=== PATIENT | male | born 1935 | race African-American/Black ===

== ENCOUNTER 2016-11-30 15:41 | Inpatient (IN) | payer MEDICARE, BC ==
[~2016-11-30] VITALS: Ht 167.6 cm; Wt 68.8 kg
[~2016-11-30 15:41] MED LIST: ALLEGRA-D 1212 HOUR PO; AMANTADINE100 MG PO; ASPIRIN325 MG PO; CELEXA10 MG PO; CENTRUM PO; CETIRIZ/PSE1 TAB PO; CRESTOR10 MG PO; CRESTOR5 MG PO; DILANTIN100 MG PO; FLUTICASONE50 MCG; FOLIC ACID1 MG PO; FOLIC ACID400 MC1 PO; GNP RED YEAST RICE PO; LISINOPRIL10 MG PO; METO25TAB PO; METOPROL TAR25 MG PO; NO HOME MEDS; ODORLESS GARLI500 MG PO; PHENYTOIN EX100 MG PO; PRAVASTATIN SOD20 MG PO; PRED FORTE1 % OP; RAPAFLO8 MG PO; ROBITUSSIN AC10 ML PO; SELENIUM200 MC2 PO; TRAMADOL HCL50 MG PO; ZPAK PO
[2016-11-30 16:13] VITALS: BP 128/85
[2016-11-30 16:47] LABS: HEMATOCRIT 31.6 % (39.0-50.0); HEMOGLOBIN 10.4 g/dl (14.0-18.0); IMMATURE GRANULOCYTES 1.1 % (0.0-1.0); MEAN CELL VOLUME 94.3 fL CALC (80.0-100.0); MEAN CORPUSCULAR HGB CONC 32.9 g/L CALC (32.0-36.0); NEUT# 5.53 thou/uL (1.82-7.42); RED BLOOD COUNT 3.35 mill/uL (4.70-6.10); RED CELL DISTRI WIDTH 16.2 % (11.5-15.5)
[2016-11-30 17:32] LABS: ALBUMIN 3.5 g/dL (3.2-5.0); ALKALINE PHOSPHATASE 69 u/l (38-126); ANION GAP 10 (6-22 (CALC)); BILIRUBIN, TOTAL 0.3 mg/dL (0.0-1.4); BUN 15 mg/dL (8-23); BUN/CREATININE RATIO 14 (12-20 (CALC)); CALCIUM 9.4 mg/dL (8.4-10.2); CARBON DIOXIDE 31 mmol/l (22-30); CHLORIDE 104 mmol/l (95-108); GFR > 60 ML/MIN (>=60 (CALC)); GFR FOR AFR.AMER. > 60 ML/MIN (>=60 (CALC)); GLUCOSE 90 mg/dL (82-115); POTASSIUM 4.4 mmol/l (3.5-5.1); SGOT/AST 18 u/l (19-48); SGPT/ALT 26 u/l (11-66); SODIUM 141 mmol/l (137-146); TOTAL PROTEIN 6.4 g/dL (6.3-8.2)
[2016-11-30 19:03] VITALS: BP 134/84
[2016-12-01 02:37] LABS: URINE BILIRUBIN - DIPSTICK NEGATIVE (NEGATIVE); URINE CLARITY CLEAR; URINE COLOR YELLOW; URINE GLUCOSE - DIPSTICK NEGATIVE (NEGATIVE); URINE KETONE NEGATIVE (NEGATIVE); URINE SPECIFIC GRAVITY <=1.005; URINE UROBILINOGEN - DIPSTICK 0.2 E.U./dL (0.2)
[2016-12-01 02:40] LABS: URINE BLOOD DIPSTICK MODERATE (NEGATIVE); URINE LEUK ESTERASE MODERATE (NEGATIVE); URINE NITRITE - DIPSTICK NEGATIVE (Negative); URINE PROTEIN - DIPSTICK NEGATIVE (NEG-TRACE)
[2016-12-01 04:32] VITALS: BP 130/67
[2016-12-01 07:43] VITALS: BP 110/78
[2016-12-01 08:51] LABS: HEMATOCRIT 34.6 % (39.0-50.0); HEMOGLOBIN 11.1 g/dl (14.0-18.0); IMMATURE GRANULOCYTES 1.7 % (0.0-1.0); MEAN CELL VOLUME 94.3 fL CALC (80.0-100.0); MEAN CORPUSCULAR HGB 30.2 pG CALC (26.0-32.0); MEAN CORPUSCULAR HGB CONC 32.1 g/L CALC (32.0-36.0); NEUT# 4.11 thou/uL (1.82-7.42); RED BLOOD COUNT 3.67 mill/uL (4.70-6.10); RED CELL DISTRI WIDTH 16.1 % (11.5-15.5)
[2016-12-01 09:07] LABS: ALBUMIN 3.5 g/dL (3.2-5.0); ALKALINE PHOSPHATASE 66 u/l (38-126); ANION GAP 13 (6-22 (CALC)); BILIRUBIN, TOTAL 0.4 mg/dL (0.0-1.4); BUN 12 mg/dL (8-23); BUN/CREATININE RATIO 11 (12-20 (CALC)); CALCIUM 9.4 mg/dL (8.4-10.2); CARBON DIOXIDE 30 mmol/l (22-30); CHLORIDE 102 mmol/l (95-108); CREATININE 1.1 mg/dL (0.7-1.3); GFR > 60 ML/MIN (>=60 (CALC)); GFR FOR AFR.AMER. > 60 ML/MIN (>=60 (CALC)); GLUCOSE 92 mg/dL (82-115); POTASSIUM 3.7 mmol/l (3.5-5.1); SGOT/AST 16 u/l (19-48); SGPT/ALT 21 u/l (11-66); SODIUM 141 mmol/l (137-146); TOTAL PROTEIN 6.5 g/dL (6.3-8.2)
[2016-12-01 15:26] VITALS: BP 111/72
[2016-12-01 19:37] VITALS: BP 96/55
[2016-12-02 03:54] VITALS: BP 140/66
[2016-12-02 07:53] VITALS: BP 70/43
[2016-12-02 14:51] VITALS: BP 78/48
[2016-12-02 18:58] VITALS: BP 96/60
[2016-12-03 03:10] VITALS: BP 95/61
[2016-12-03 09:20] VITALS: BP 70/40
[2016-12-03 14:56] VITALS: BP 92/59
[2016-12-03 19:24] VITALS: BP 105/58
[2016-12-04 04:20] VITALS: BP 107/55
[2016-12-04 05:51] LABS: HEMATOCRIT 33.8 % (39.0-50.0); HEMOGLOBIN 10.9 g/dl (14.0-18.0); IMMATURE GRANULOCYTES 1.2 % (0.0-1.0); MEAN CELL VOLUME 95.8 fL CALC (80.0-100.0); MEAN CORPUSCULAR HGB 30.9 pG CALC (26.0-32.0); MEAN CORPUSCULAR HGB CONC 32.2 g/L CALC (32.0-36.0); NEUT# 3.51 thou/uL (1.82-7.42); RED BLOOD COUNT 3.53 mill/uL (4.70-6.10); RED CELL DISTRI WIDTH 16.2 % (11.5-15.5)
[2016-12-04 06:20] LABS: ANION GAP 11 (6-22 (CALC)); BUN 17 mg/dL (8-23); BUN/CREATININE RATIO 18 (12-20 (CALC)); CALCIUM 8.8 mg/dL (8.4-10.2); CARBON DIOXIDE 29 mmol/l (22-30); CHLORIDE 104 mmol/l (95-108); CREATININE 0.9 mg/dL (0.7-1.3); GFR > 60 ML/MIN (>=60 (CALC)); GFR FOR AFR.AMER. > 60 ML/MIN (>=60 (CALC)); GLUCOSE 92 mg/dL (82-115); POTASSIUM 3.9 mmol/l (3.5-5.1); SODIUM 140 mmol/l (137-146)
[2016-12-04 07:40] VITALS: BP 81/55
[2016-12-04 13:55] VITALS: BP 115/75
== END 2016-12-04 16:40 | DRG 293 ==
LOC: ENPENDDIS → MS2 15:41
PROVIDERS: ADMIT Internal Medicine Geriatric Medicine; ATTEND Internal Medicine Geriatric Medicine
PROC: 0T9B70Z Drainage of Bladder with Drainage Device, Via Natural or Artificial Opening (ICD-10-PCS; principal; 2016-12-04)
DX: I50.9 Heart failure, unspecified (principal); F03.90 Unspecified dementia, unspecified severity, without behavioral disturbance, psychotic disturbance, mood disturbance, and anxiety; I48.91 Unspecified atrial fibrillation; I25.10 Atherosclerotic heart disease of native coronary artery without angina pectoris; F41.9 Anxiety disorder, unspecified; F32.9 Major depressive disorder, single episode, unspecified; M19.90 Unspecified osteoarthritis, unspecified site; E03.9 Hypothyroidism, unspecified; L98.9 Disorder of the skin and subcutaneous tissue, unspecified; R33.9 Retention of urine, unspecified; Z91.81 History of falling

== ENCOUNTER 2016-12-31 10:49 | Emergency (ER) | payer MEDICARE, BC ==
[~2016-12-31] VITALS: Ht 167.6 cm; Wt 73.0 kg
[2016-12-31 13:34] VITALS: BP 114/65
== END 2016-12-31 13:43 ==
LOC: ED 10:49
PROC: 0T2BX0Z Change Drainage Device in Bladder, External Approach (ICD-10-PCS; principal; 2016-12-31)
DX: Z46.6 Encounter for fitting and adjustment of urinary device (principal); G30.9 Alzheimer's disease, unspecified; F02.80 Dementia in other diseases classified elsewhere, unspecified severity, without behavioral disturbance, psychotic disturbance, mood disturbance, and anxiety

== ENCOUNTER 2017-09-03 08:42 | Emergency (ER) | payer MEDICARE, BC ==
[~2017-09-03] VITALS: Ht 167.6 cm; Wt 78.0 kg
[2017-09-03] MEDS ORDERED: VIBRAMYCIN100 M2 PO (09:08)
[2017-09-03] MEDS ORDERED: METOPROL TAR25 MG PO (09:08)
[2017-09-03 10:35] VITALS: BP 104/66
== END 2017-09-03 11:15 ==
LOC: ED 08:42
DX: S00.11XA Contusion of right eyelid and periocular area, initial encounter (principal); S01.111A Laceration without foreign body of right eyelid and periocular area, initial encounter; W06.XXXA Fall from bed, initial encounter; Y93.89 Activity, other specified; Y92.122 Bedroom in nursing home as the place of occurrence of the external cause

== ENCOUNTER 2017-10-03 11:00 | Observation (INO) | payer MEDICARE, BC ==
[~2017-10-03] VITALS: Ht 167.6 cm; Wt 72.6 kg
[~2017-10-03 11:00] MED LIST changes: +VIBRAMYCIN100 M2 PO
[2017-10-03 11:23] LABS: HEMATOCRIT 38.9 % (39.0-50.0); HEMOGLOBIN 13.4 g/dl (14.0-18.0); IMMATURE GRANULOCYTES 0.7 % (0.0-1.0); MEAN CELL VOLUME 98.5 fL CALC (80.0-100.0); MEAN CORPUSCULAR HGB 33.9 pG CALC (26.0-32.0); MEAN CORPUSCULAR HGB CONC 34.4 g/L CALC (32.0-36.0); NEUT# 4.55 thou/uL (1.82-7.42); RED BLOOD COUNT 3.95 mill/uL (4.70-6.10); RED CELL DISTRI WIDTH 12.7 % (11.5-15.5)
--- NOTE | 2017-10-03 11:38 | NUR ---
PT ARRIVES BY EMS, ANSWERS QUESTIONS APPROPRIATELY, OCCASIONAL SHAKING IF STARTLED WHILE RESTING.
[2017-10-03 11:43] LABS: ALBUMIN 3.7 g/dL (3.2-5.0); ALKALINE PHOSPHATASE 79 u/l (38-126); ANION GAP 15 (6-22 (CALC)); BILIRUBIN, TOTAL 0.5 mg/dL (0.0-1.4); BUN 17 mg/dL (8-23); BUN/CREATININE RATIO 15 (12-20 (CALC)); CARBON DIOXIDE 30 mmol/l (22-30); CHLORIDE 104 mmol/l (95-108); CREATININE 1.1 mg/dL (0.7-1.3); GFR > 60 ML/MIN (>=60 (CALC)); GFR FOR AFR.AMER. > 60 ML/MIN (>=60 (CALC)); POTASSIUM 4.9 mmol/l (3.5-5.1); SGOT/AST 20 u/l (19-48); SGPT/ALT 17 u/l (11-66); SODIUM 144 mmol/l (137-146); TOTAL PROTEIN 6.6 g/dL (6.3-8.2)
[2017-10-03 12:42] LABS: URINE BILIRUBIN - DIPSTICK NEGATIVE (NEGATIVE); URINE BLOOD DIPSTICK NEGATIVE (NEGATIVE); URINE COLOR YELLOW; URINE GLUCOSE - DIPSTICK NEGATIVE (NEGATIVE); URINE KETONE NEGATIVE (NEGATIVE); URINE LEUK ESTERASE NEGATIVE (NEGATIVE); URINE NITRITE - DIPSTICK NEGATIVE (Negative); URINE PH 7.5 (4.5-8.0); URINE PROTEIN - DIPSTICK NEGATIVE (NEG-TRACE); URINE SPECIFIC GRAVITY 1.015; URINE UROBILINOGEN - DIPSTICK 0.2 E.U./dL (0.2)
[2017-10-03 12:45] LABS: URINE CLARITY CLEAR
[2017-10-03 13:21] LABS: C. DIFFICILE TOXIN A&B NEGATIVE (NEGATIVE)
--- NOTE | 2017-10-03 14:23 | NUR ---
DAUGHTER HAS ARRIVED TO ROOM 14, STATES ONLY RECENTLY HAS HER FATHER BECOME THIS CONFUSED, NOT ORIENTED. DTR STATES THE SHAKING NOTED EARLIER IS NOT NEW TO HIM. PT CLEANED UP FOR STOOL INCONTINENCE.
[2017-10-03] MEDS ORDERED: CIPROFLOXACN500 MG PO (14:42)
[2017-10-03] MEDS ORDERED: MULTI VIT PO (15:16)
[2017-10-03] MEDS ORDERED: MIRALAX3350 NF PO (15:16)
[2017-10-03 15:34] VITALS: BP 105/70
--- NOTE | 2017-10-03 15:40 | NUR ---
PT ARRIVED FROM ER VIA STRETCHER ACCOMPANIED BY STAFF, IV SITE IS FREE FROM REDNESS OR EDEMA.,
--- NOTE | 2017-10-03 15:46 | NUR ---
PT TAKEN TO ROOM 291 WITHOUT INCIDENT, REPORT WAS TO SOSA.
--- NOTE | 2017-10-03 16:30 | NUR ---
PT IS HAVING LOOSE STOOLS DUE TO MEDICATION FROM REHAB. IV SITE IS FREE FROM REDNESS OR EDEMA. NO DISTRESS NOTED. DRESSING ON LEFT HAND WITH PLASTIC BAG AND SILVANO WRAP COVERED DUE TO PT TOUCHING THINGS. HAVING AUDITORY HALLUCINATIONS AND SHAKING, ALMOST NERVOUS TYPE MOVEMENTS. BRICE ORACLE ADF CONSULTANT IN TO WITNESS. FAMILY IN THE ROOM. CHANGING PT ON BED STEVEN. CONTINUE TO OSBERVE AND MONITOR.
--- NOTE | 2017-10-03 17:00 | NUR ---
PT ASSESSMENT IS COMPLETED: BREATH SOUNDS ARE CLEAR,BILATERALLY, HR IS REG, PULSES ARE STRONG X4. ABD IS SOFT WITH ACTIVE BS. IV SITE IS FREE FROM REDNESS OR EDEMA.
--- NOTE | 2017-10-03 19:15 | NUR ---
PT RESTING IN BED WITH EYES OPEN. PT IS ALERT AND ORIENTED X3. PT HAS PERIODS OF CONFUSIONS. PERRLA. RESP ARE EVEN AND UNLABORED. LUNGS ARE CLEAR. NO DSITRESS NOTED. HR REGULAR. PULSES PALPABLE THROUGHOUT. NO EDEMA NOTED. BS ACTIVE. PT INCONTINENT OF URINE. PT CLEANED AND COMPLETE LINEN CHANGE PROVIDED. MIDLINE KRISTINE WITH NS @100CC/HR INFUSING. NO REDNESS OR EDEMA NOTED. PT HAS PERIODS OF PLACING HIS ARMS IN THE AIR AND LEGS MOVING IN A JERKING MANNER, BUT UPON CALLING PTS NAME THESE MOVEMENTS CEASE AND PT IS STILL ALERT AND ORIENTED X3.
[2017-10-03 20:10] VITALS: BP 120/80
--- NOTE | 2017-10-03 21:00 | NUR ---
LEFT HAND DRESSING FOUND TO BE SOILED. NOTIFIED DR PIZANO. DRESSING REMOVED. WOUND CARE PROVIDED. FOUL ODOR NOTED. PICTURES PLACED ON CHART. REDRESSED WOUND. ORDERS OBTAINED FOR HAND XRAY AND ABT THERAPY.
--- NOTE | 2017-10-03 23:30 | NUR ---
XRAY INTO ROOM. TO COMPLETE LEFT HAND XRAY
--- NOTE | 2017-10-04 | NUR ---
PT CONTINUES TO HAVE PERIODS OF JERKING TYPE MOVEMENTS AND YELLING. PT CONTINUES TO REMAIN ALERT AND ORIENTED X3 ONCE NAME IS CALLED. WILL CONTINUE TO MONITOR
--- NOTE | 2017-10-04 02:00 | NUR ---
PT INCONTINENT OF URINE. PT PROVIDED WITH PARTIAL BATH AND COMPLETE LINEN CHANGE.
--- NOTE | 2017-10-04 04:00 | NUR ---
PT RESTING IN BED WITH EYES CLOSED. FEWER PERIODS OF JERKING MOVEMENTS. NO DISTRESS NOTED. WILL CONTINUE TO MONITOR
[2017-10-04 04:40] VITALS: BP 113/63
[2017-10-04 05:21] LABS: HEMATOCRIT 34.2 % (39.0-50.0); HEMOGLOBIN 11.9 g/dl (14.0-18.0); MEAN CELL VOLUME 98.3 fL CALC (80.0-100.0); MEAN CORPUSCULAR HGB 34.2 pG CALC (26.0-32.0); MEAN CORPUSCULAR HGB CONC 34.8 g/L CALC (32.0-36.0); RED BLOOD COUNT 3.48 mill/uL (4.70-6.10); RED CELL DISTRI WIDTH 12.7 % (11.5-15.5)
[2017-10-04 05:29] LABS: ANION GAP 11 (6-22 (CALC)); BUN 12 mg/dL (8-23); BUN/CREATININE RATIO 12 (12-20 (CALC)); CARBON DIOXIDE 25 mmol/l (22-30); CHLORIDE 110 mmol/l (95-108); GFR > 60 ML/MIN (>=60 (CALC)); GFR FOR AFR.AMER. > 60 ML/MIN (>=60 (CALC)); MAGNESIUM 2.1 mg/dL (1.6-2.3); POTASSIUM 4.3 mmol/l (3.5-5.1); SODIUM 142 mmol/l (137-146)
[2017-10-04 07:12] VITALS: BP 108/71
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
--- NOTE | 2017-10-04 08:20 | NUR ---
ASSESSMENT IS COMPLTED: PT IS MOVING AROUND IN BED , DRESSING ON LEFT HAND IS CDI. IV SITE IS FREE FROM REDNESS OR EDEMA. NO DISTRESS NOTED,. CONTIINUE TO OBSERVE AND MONITOR.
--- NOTE | 2017-10-04 08:25 | NUR ---
IN TO ASSIST PT W/ BREAKFAST. PT REFUSED TO EAT SOLID FOOD BUT TOLERATED LIQUIDS WELL. PT DRINK 217 MLS OF ENSURE. WILL CONTINUE TO NOTIFY.
--- NOTE | 2017-10-04 08:52 | NUR ---
Drug Selected: Vancomycin Age: 81 years Weight: 73 kg Height: 66 in Gender: Male SCR: 1.0 mg/dl CRCL (ml/min): 51.4 Give Vancomycin 750 mg q12 hrs GOAL TROUGH 15-20 NEXT TROUGH WILL BE 10/05/2017 @1035
--- NOTE | 2017-10-04 12:00 | NUR ---
IMANI NAGEL STUDENT RECHECKED PT'S VS. VS ARE STABLE. NO DISTRESS NOTED, PT ONLY ATE 50% OF LUNCH. ENCOURAGING TO DRINK ENSURE. CONTINUE TO OBSERVE AND MONITOR.
[2017-10-04 12:21] VITALS: BP 100/57
[2017-10-04 15:29] VITALS: BP 127/79
--- NOTE | 2017-10-04 16:15 | NUR ---
PT IS RELAXING IN BED WITH NO DISTRESS NOTED. IV SITE IS FREE FROM REDNESS OR EDEMA. CONTINUE TO OBSERVE AND MONITOR.
--- NOTE | 2017-10-04 19:30 | NUR ---
REPORT RECEIVED FROM ROBE SWAN;PT RESTING IN SEMI FOWLERS POSITION;CONTACT AND SEIZURE PRECAUTIONS IN PLACE;INTRODUCED SELF TO PT AND POC DISCUSSED;PT RE-ORIENTED TO PLACE AND TIME;BED IN THE LOWEST POSITION WITH CALL LIGHT IN REACH;WILL CONTINUE TO MONITOR
--- NOTE | 2017-10-04 19:34 | NUR ---
WHEN MAKING ROUNDS WITH ONCOMING SHIFT. PT WAS ATTEMPTING TOGET OUT OF BED, TELLING US THAT HE NEEDS TO GO HOME HE HAS SOMETHING HE HAS TO DO.
[2017-10-04 20:05] VITALS: BP 118/74
--- NOTE | 2017-10-04 20:50 | NUR ---
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
--- NOTE | 2017-10-05 00:10 | NUR ---
RT AT BEDSIDE TO OBTAIN EKG;PT UNCOOPERATIVE,BITING AND PUSHING THE WHOLE TIME;RESISTANT TO CARE R/T AMS
[2017-10-05 00:45] VITALS: BP 133/79
--- NOTE | 2017-10-05 00:45 | NUR ---
PT FOUND FLAILING IN BED,CLEARLY AGITATED;RESPIRATIONS SHALLOW AND COURSE IN SOUND;O2 SATS 97% ON RA HR 85 BP 133/79;SEIZURE PRECAUTIONS REMAIN IN PLACE;PT REMAINS VERBAL BUT WITH GARBLED SPEECH;WILL CONTINUE TO MONITOR
--- NOTE | 2017-10-05 02:10 | NUR ---
COMPLETE BEDBATH COMPLETED BY NICOLE AVENDANO AND MARIUM;PT REPORTED THAT HE WAS IN "[facility]" AND THAT THE YEAR WAS "2019";INCONTINENT OF A LARGE AMOUNT OF URINE AND SCANT STOOL;BED ALARM ON FOR PT SAFETY;WILL CONTINUE TO MONITOR
[2017-10-05 04:55] VITALS: BP 112/63
--- NOTE | 2017-10-05 04:55 | NUR ---
PT SLEEPING IN SEMI FOWLERS POSITION WITH BED ALARM ON;WOKE PT TO OBTAIN VS AND PROVIDE COLE CARE;PT ALERT TO SELF AND PLACE;RESPIRATIONS EVEN AND UNLABORED ON RA;SEIZURE PRECAUTIONS IN PLACE;FRESH WATER PROVIDED;FALL PRECAUTIONS IN PLACE WITH BED IN THE LOWEST POSITION;WILL CONTINUE TO MONITOR
[2017-10-05 05:52] LABS: ANION GAP 13 (6-22 (CALC)); BUN 12 mg/dL (8-23); BUN/CREATININE RATIO 12 (12-20 (CALC)); CARBON DIOXIDE 25 mmol/l (22-30); CHLORIDE 109 mmol/l (95-108); GFR > 60 ML/MIN (>=60 (CALC)); GFR FOR AFR.AMER. > 60 ML/MIN (>=60 (CALC)); MAGNESIUM 2.1 mg/dL (1.6-2.3); POTASSIUM 4.3 mmol/l (3.5-5.1); SODIUM 142 mmol/l (137-146)
[2017-10-05 05:59] LABS: HEMATOCRIT 33.8 % (39.0-50.0); IMMATURE GRANULOCYTES 0.7 % (0.0-1.0); MEAN CORPUSCULAR HGB 34.8 pG CALC (26.0-32.0); MEAN CORPUSCULAR HGB CONC 35.5 g/L CALC (32.0-36.0); NEUT# 4.16 thou/uL (1.82-7.42); RED BLOOD COUNT 3.45 mill/uL (4.70-6.10); RED CELL DISTRI WIDTH 12.6 % (11.5-15.5)
--- NOTE | 2017-10-05 07:50 | NUR ---
PT DROWSY/AROUSABLE; DIRECT CARE COUNSELOR IN TO ASSIST WITH BREAKFAST FEED; IVF INFUSING WITHOUT DIFFICULTY IN KRISTINE MIDLINE, NO REDNESS OR EDEMA AT SITE; DRSG TO LEFT HAND CDI; BED ALARM IN PLACE FOR SAFEY; CALL ANAND WITHIN REACH; WILL CONTINUE TO MONITOR.
[2017-10-05 08:46] VITALS: BP 118/72
--- NOTE | 2017-10-05 10:26 | NUR ---
DAUGHTER IN TO VISIT PT; PLAN OF CARE DISCUSSED; WILL CONTINUE TO MONITOR.
--- NOTE | 2017-10-05 14:43 | NUR ---
DR. COOPER IN TO SEE PT; PLAN OF CARE DISCUSSED;
--- NOTE | 2017-10-05 15:15 | NUR ---
PT INCONTINEN OF MODERATE AMOUNT OF URINE; COLE CARE PROVIDED BY OYSTER GRADER; PT REPOSITIONED; FAMILY IN ROOM; CALL ANAND WITHIN REACH; WILL CONTINUE TO MONITOR.
[2017-10-05 15:22] VITALS: BP 133/74
--- NOTE | 2017-10-05 17:47 | NUR ---
PT ASSISTED WITH DINNER BY RIGHT OF WAY CUTTER; WILL CONTINUE TO MONITOR.
[2017-10-05 19:08] VITALS: BP 136/82
--- NOTE | 2017-10-05 19:20 | NUR ---
REPORT RECEIVED FROM DORCAS MORALES;PT RESTING IN SEMI FOWLERS POSITION WITH EYES CLSOED;NO S/S OF DISTRESS NOTED;FALL PRECAUTIONS IN PLACE WITH BED ALARM ON;WILL CONTINUE TO MONITOR
--- NOTE | 2017-10-05 20:00 | NUR ---
PT FOUND WITH MIDLINE REMOVED WITH CATHETER INTACT; NOTIFIED
--- NOTE | 2017-10-05 20:40 | NUR ---
PT RESTING IN BED;ALERT TO PERSON AND PLACE;ASSESSMENT COMPLETED;RESPIRATIONS EVEN BUT SHALLOW ON RA,O2 SATS 97%;COARSE LUNG SOUNDS;ABDOMEN SOFT;DRESSING TO RIGHT HAND/ARM CDI;BODY TREMORS NOTED AT TIMES,SEIZURE PRECAUTIONS IN PLACE;PT INCONTINENT OF BOWEL AND URINE,COLE CARE TO BE PROVIDED THROUGHOUT THE SHIFT;CONTACT PRECAUTIONS FOR HX OF MRSA;BED ALARM IN PLACE FOR PT SAFETY WITH BED IN THE LOWEST POSITION;CALL LIGHT IN REACH;WILL CONTINUE TO MONITOR CLOSELY
--- NOTE | 2017-10-05 21:20 | NUR ---
NEW #22G TO RAC STARTED BY CHRIS,RN,PT TOLERATED WELL
--- NOTE | 2017-10-06 00:05 | NUR ---
PT AWAKE,SLIGHTLY AGITATED;ATTEMPTING TO GRAB OBJECTS IN THE AIR;PT RE-ORIENTED TO PLACE AND TIME;GARBLED SPEECH;SEIZURE PRECAUTIONS IN PLACE;BED ALARM ON FOR SAFETY;WILL CONTINUE TO MONITOR
[2017-10-06 04:18] VITALS: BP 116/80
--- NOTE | 2017-10-06 04:20 | NUR ---
PT LAYING IN BED WIDE AWAKE,MOANING;VS OBTAINED;RESPIRATIONS EVEN AND UNLABORED,SHALLOW ON RA,OS SATS 98%;PT INCONTINENT OF A MODERATE AMOUNT OF CLEAR/YELLOW URINE;COLE CARE TO BE PROVIDED;SEIZURE PRECAUTIONS IN PLACE;BED ALARM ON FOR SAFETY;CALL LIGHT IN REACH;WILL CONTINUE TO MONITOR
--- NOTE | 2017-10-06 05:00 | NUR ---
FULL BED BATH PROVIDED BY MYSELF AND DORCAS GERMAIN;SKIN TEAR NOTED TO LEFT FOREARM AT THIS TIME;PHOTOGRAPH OBTAINED AND PLACED IN CHART,BANDAID APPLIED
[2017-10-06 08:23] VITALS: BP 121/56
--- NOTE | 2017-10-06 09:57 | NUR ---
THAD FROM R CALLED FOR UPDATE ON PT STATUS
--- NOTE | 2017-10-06 11:36 | NUR ---
DR. COOPER IN TO SEE PT
[2017-10-06] MEDS ORDERED: QUETIAPINE FUMA25 MG PO (12:37)
--- NOTE | 2017-10-06 15:15 | NUR ---
PT TRANSFERED TO R VIA WC ACCOMPANIED BY STAFF; BEDSIDE REPORT GIVEN TO DORCAS MCBRIDE
--- NOTE | 2017-10-06 15:16 | NUR ---
Discharge instructions given. Patient verbalizes understanding of same. Discharged in stable condition via Wheel[facility] with [facility]. All belongings sent with pt.
== END 2017-10-06 15:10 ==
LOC: ED 11:00 → ED-I 14:42 → ED 14:59 → MS2 15:00
PROVIDERS: Emergency Medicine; Nurse Practitioner Family; ADMIT Internal Medicine; ATTEND Internal Medicine
DX: G30.9 Alzheimer's disease, unspecified (principal); F02.81 Dementia in other diseases classified elsewhere, unspecified severity, with behavioral disturbance; I48.91 Unspecified atrial fibrillation; I50.9 Heart failure, unspecified; A09 Infectious gastroenteritis and colitis, unspecified; F02.80 Dementia in other diseases classified elsewhere, unspecified severity, without behavioral disturbance, psychotic disturbance, mood disturbance, and anxiety; I10 Essential (primary) hypertension; I25.10 Atherosclerotic heart disease of native coronary artery without angina pectoris; I11.0 Hypertensive heart disease with heart failure; F41.9 Anxiety disorder, unspecified; F32.9 Major depressive disorder, single episode, unspecified; E03.9 Hypothyroidism, unspecified; T23.302D Burn of third degree of left hand, unspecified site, subsequent encounter; X08.8XXD Exposure to other specified smoke, fire and flames, subsequent encounter; Z91.81 History of falling
CPT/HCPCS: J0692; J1650; J3370

== ENCOUNTER → 2018-10-11 | Outpatient (REF) | payer MEDICARE, BC ==
[~2018-10-11] MED LIST changes: +CIPROFLOXACN500 MG PO; +DUONEB IN; +IRON325 M1; +MILK OF MAG30 ML/UDC PO; +MIRALAX3350 NF PO; +MULTI VIT PO; +QUETIAPINE FUMA25 MG PO; +TAMSULOSIN HCL0.4 MG PO; +TYLENOL325 MG PO
== END | disposition home or self-care (01) ==
LOC: LABSPEC 00:56
PROVIDERS: ATTEND Internal Medicine Geriatric Medicine
DX: M86.9 Osteomyelitis, unspecified (principal); Z79.2 Long term (current) use of antibiotics

== ENCOUNTER → 2018-10-21 | Outpatient (REF) | payer MEDICARE, BC ==
[2018-10-21 15:24] LABS: HEMATOCRIT 34.6 % (39.0-50.0); HEMOGLOBIN 11.8 g/dl (14.0-18.0); IMMATURE GRANULOCYTES 2.7 % (0.0-5.0); MEAN CELL VOLUME 103.3 fL CALC (80.0-100.0); MEAN CORPUSCULAR HGB 35.2 pG CALC (26.0-32.0); MEAN CORPUSCULAR HGB CONC 34.1 g/L CALC (32.0-36.0); NEUT# 3.26 thou/uL (1.82-7.42); RED BLOOD COUNT 3.35 mill/uL (4.70-6.10); RED CELL DISTRI WIDTH 13.8 % (11.5-15.5)
[2018-10-21 15:35] LABS: ALBUMIN 3.6 g/dL (3.2-5.0); ALKALINE PHOSPHATASE 85 u/l (38-126); ANION GAP 15 (6-22 (CALC)); BILIRUBIN, TOTAL 0.5 mg/dL (0.0-1.4); BUN 16 mg/dL (8-23); BUN/CREATININE RATIO 14 (12-20 (CALC)); CARBON DIOXIDE 23 mmol/l (22-30); CHLORIDE 105 mmol/l (95-108); CREATININE 1.2 mg/dL (0.7-1.3); GFR 58 ML/MIN (>=60 (CALC)); GFR FOR AFR.AMER. > 60 ML/MIN (>=60 (CALC)); POTASSIUM 4.6 mmol/l (3.5-5.1); SGOT/AST 29 u/l (19-48); SODIUM 139 mmol/l (137-146); TOTAL PROTEIN 6.5 g/dL (6.3-8.2)
== END | disposition home or self-care (01) ==
LOC: LABSPEC 14:52
PROVIDERS: ATTEND Internal Medicine Geriatric Medicine
DX: M86.9 Osteomyelitis, unspecified (principal); Z79.2 Long term (current) use of antibiotics

== ENCOUNTER → 2018-10-22 | Outpatient (REF) | payer MEDICARE, BC | END | disposition home or self-care (01) | LOC: LABSPEC-NH 15:10 | PROVIDERS: ATTEND Internal Medicine Geriatric Medicine | DX: M86.9 Osteomyelitis, unspecified (principal); Z79.2 Long term (current) use of antibiotics ==

== ENCOUNTER → 2018-10-26 | Outpatient (REF) | payer MEDICARE, BC | END | disposition home or self-care (01) | LOC: LABSPEC 20:08 | PROVIDERS: ATTEND Internal Medicine Geriatric Medicine | DX: Z51.81 Encounter for therapeutic drug level monitoring (principal); Z79.2 Long term (current) use of antibiotics ==

== ENCOUNTER → 2018-11-07 | Outpatient (REF) | payer MEDICARE, BC | END | disposition home or self-care (01) | LOC: LABSPEC-NH 20:53 | PROVIDERS: ATTEND Internal Medicine Geriatric Medicine | DX: Z16.21 Resistance to vancomycin (principal); Z79.2 Long term (current) use of antibiotics ==

== ENCOUNTER → 2018-11-08 | Outpatient (REF) | payer MEDICARE, BC | END | disposition home or self-care (01) | LOC: LABSPEC-NH 21:40 | PROVIDERS: ATTEND Internal Medicine Geriatric Medicine | DX: Z16.21 Resistance to vancomycin (principal); Z79.2 Long term (current) use of antibiotics ==

== ENCOUNTER → 2018-11-13 | Outpatient (REF) | payer MEDICARE, BC | END | disposition home or self-care (01) | LOC: LABREF 02:14 | PROVIDERS: ATTEND Internal Medicine Geriatric Medicine | DX: Z16.21 Resistance to vancomycin (principal); Z79.2 Long term (current) use of antibiotics ==

== ENCOUNTER → 2018-11-17 | Outpatient (REF) | payer MEDICARE, BC ==
[2018-11-17 10:40] LABS: HEMATOCRIT 36.7 % (39.0-50.0); HEMOGLOBIN 12.7 g/dl (14.0-18.0); IMMATURE GRANULOCYTES 1.5 % (0.0-5.0); MEAN CORPUSCULAR HGB 33.2 pG CALC (26.0-32.0); MEAN CORPUSCULAR HGB CONC 34.6 g/L CALC (32.0-36.0); NEUT# 4.64 thou/uL (1.82-7.42); RED BLOOD COUNT 3.82 mill/uL (4.70-6.10)
[2018-11-17 10:45] LABS: MEAN CELL VOLUME 96.1 fL CALC (80.0-100.0)
[2018-11-17 10:53] LABS: ALBUMIN 3.6 g/dL (3.2-5.0); ALKALINE PHOSPHATASE 62 u/l (38-126); ANION GAP 12 (6-22 (CALC)); BILIRUBIN, TOTAL 0.5 mg/dL (0.0-1.4); BUN 15 mg/dL (8-23); BUN/CREATININE RATIO 13 (12-20 (CALC)); CARBON DIOXIDE 26 mmol/l (22-30); CHLORIDE 105 mmol/l (95-108); CREATININE 1.2 mg/dL (0.7-1.3); GFR 58 ML/MIN (>=60 (CALC)); GFR FOR AFR.AMER. > 60 ML/MIN (>=60 (CALC)); POTASSIUM 4.2 mmol/l (3.5-5.1); SGOT/AST 21 u/l (19-48); SODIUM 139 mmol/l (137-146); TOTAL PROTEIN 6.4 g/dL (6.3-8.2)
== END | disposition home or self-care (01) ==
LOC: LABSPEC-NH 10:23
PROVIDERS: ATTEND Internal Medicine Geriatric Medicine
DX: M86.9 Osteomyelitis, unspecified (principal); Z79.2 Long term (current) use of antibiotics

== ENCOUNTER 2019-10-20 02:06 | Inpatient (IN) | payer MEDICARE, BC, OTHER ==
[2019-10-20] VITALS (48 sets, daily range): BP systolic 60–154; BP diastolic 34–96
[~2019-10-20] VITALS: Ht 167.6 cm; Wt 90.3 kg
[~2019-10-20 02:06] MED LIST changes: +CENTANY21 EX; +CLINDAMYCIN HC150 MG PO; +HEPARIN LOC IJ; +NORMAL SALINE F0.9 % IN; -TYLENOL325 MG PO
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
--- NOTE | 2019-10-20 02:25 | NUR ---
ATROPINE 1MG TOTAL GIVEN. PUSHED 0.5MG, WAITED WITH NO IMPROVEMENT, PUSHED OTHER 0.5MG.
[2019-10-20 02:48] LABS: HEMATOCRIT 38.6 % (39.0-50.0); HEMOGLOBIN 13.4 g/dl (14.0-18.0); MEAN CELL VOLUME 101.6 fL CALC (80.0-100.0); MEAN CORPUSCULAR HGB 35.3 pG CALC (26.0-32.0); MEAN CORPUSCULAR HGB CONC 34.7 g/L CALC (32.0-36.0); NEUT# 3.77 thou/uL (1.82-7.42); RED BLOOD COUNT 3.8 mill/uL (4.70-6.10); RED CELL DISTRI WIDTH 13.5 % (11.5-15.5)
[2019-10-20 03:01] LABS: PROTHROMBIN TIME 10.2 SECONDS (9.0-12.5)
[2019-10-20 03:02] LABS: ALBUMIN 3.4 g/dL (3.2-5.0); ALKALINE PHOSPHATASE 68 u/l (38-126); ANION GAP 10 (6-22 (CALC)); BILIRUBIN, TOTAL 0.4 mg/dL (0.0-1.4); BUN 22 mg/dL (8-23); BUN/CREATININE RATIO 19 (12-20 (CALC)); CARBON DIOXIDE 27 mmol/l (22-30); CHLORIDE 107 mmol/l (95-108); CREATININE 1.1 mg/dL (0.7-1.3); GFR > 60 ML/MIN (>=60 (CALC)); GFR FOR AFR.AMER. > 60 ML/MIN (>=60 (CALC)); SGOT/AST 31 u/l (19-48); SODIUM 139 mmol/l (137-146); TOTAL PROTEIN 6.4 g/dL (6.3-8.2)
--- NOTE | 2019-10-20 03:05 | NUR ---
REPEAT DOSE OF ATROPINE GIVEN WITHOUT ANY IMPROVEMENT,
--- NOTE | 2019-10-20 03:20 | NUR ---
DAUGHTER AT BEDSIDE. DOPAMINE UP PER ORDER. HR UP TO 46 AND BP 59/46
--- NOTE | 2019-10-20 03:42 | NUR ---
REPORT GIVEN TO ROBE MENDES
--- NOTE | 2019-10-20 03:48 | NUR ---
Admission Note Report Given to: ROBE MENDES Transported by: Wheelchair X Stretcher Transported with: X Nurse Transporter X Patent IV O2 X Central Office Installer Location: X ICU MS2 DOPAMINE DRIP AND NS INFUSING.
--- NOTE | 2019-10-20 04:00 | NUR ---
84 yr old black male admitted icu7 per stretcher from er. transferred x4 to bed. bed weight obtained. 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 #20 lac saline lock. #22 rfa ns bolus cont, dopamine infusing @ 5mcg/kg/min. history obtained per er record & old chart. oriented to room. fall precautions initiated. daughter @ bedside.
--- NOTE | 2019-10-20 06:00 | NUR ---
remains confused. awake overnight monitor shows sinus arslan 1st degree avb hr 38. daughter @ bedside. has not voided.
--- NOTE | 2019-10-20 07:45 | NUR ---
PT RESTING IN BED WITH EYES CLOSED. NO DISTRESS NOTED. WILL CONTINUE TO MONITOR.
--- NOTE | 2019-10-20 10:00 | NUR ---
DR. PIZANO AT BEDSIDE TO ASSESS PT
--- NOTE | 2019-10-20 10:15 | NUR ---
PT UP IN CHAIR FOR BREAKFAST. FAMILY AT BEDSIDE. NO DISTRESS NOTED. DOPAMINE GTT TITRATED UP PER ORDER. WILL CONTINUE TO MONITOR.
--- NOTE | 2019-10-20 12:23 | NUR ---
PT RESTING IN BED WITH EYES CLOSED. FEED ASSISTED FOR LUNCH. NO DISTRESS NOTED. WILL CONTINUE TO MONITOR.
--- NOTE | 2019-10-20 14:11 | NUR ---
PT RESTING IN BED WITH EYES CLOSED. NO DISTRESS NOTED. WILL CONTINUE TO MONITOR.
--- NOTE | 2019-10-20 16:10 | NUR ---
PT RESTING IN BED WITH EYES CLOSED. NO DISTRESS NOTED. PT ORIENTED TO SELF. DOPAMINE GTT ON. INCONTINENCE CARE PROVIDED. DENIES PAIN AT THIS TIME. WILL CONTINUE TO MONITOR.
--- NOTE | 2019-10-20 18:56 | NUR ---
REPORT GIVEN TO NIGHT NURSE. PT RESTING IN BED WITH EYES CLOSED. NO DISTRESS NOTED. PT ON ROOM AIR. DOPAMINE GTT. NO BM THIS SHIFT. PLEASE SEE FLOW SHEET FOR FURTHER DETAILS
--- NOTE | 2019-10-20 19:10 | NUR ---
awake. oriented to name only. campus monitor shows sinus rhythm 1st degree avb pacs pvcs hr 65. #22 rfa saline lock. #20 lac. dopamine gtt infusing @ 10mcg/kg/min. ns infusing @ 125cchr. refused po intake. diaper in place & is dry. turned & repositioned. requires total care for all needs. fall precautions cont.
--- NOTE | 2019-10-20 22:00 | NUR ---
iv out of lac with cath intact. no obvious edema @ site. incont of urine. linens changed. pericare given-diaper replaced. ivf cont per rfa site.
[2019-10-21] VITALS (10 sets, daily range): BP systolic 96–174; BP diastolic 51–86
--- NOTE | 2019-10-21 00:01 | NUR ---
eyes closed. no distress. hris manager shows sinus rhythm 1st degree avb pacs pvcs hr 62.
--- NOTE | 2019-10-21 02:00 | NUR ---
resting quietly. resps even & unlabored. no apparent distress. cardiac care nurse shows sinus rhythm 1st degree avb pacs pvcs hr 76.
--- NOTE | 2019-10-21 04:30 | NUR ---
incont large amt urine. maryjane care given-diaper replaced. linens changed.
--- NOTE | 2019-10-21 05:00 | NUR ---
lab here. blood drawn.
--- NOTE | 2019-10-21 05:10 | NUR ---
rt @ bedside. ekg obtained.
[2019-10-21 05:24] LABS: HEMATOCRIT 35.2 % (39.0-50.0); HEMOGLOBIN 12.1 g/dl (14.0-18.0); MEAN CELL VOLUME 101.7 fL CALC (80.0-100.0); MEAN CORPUSCULAR HGB CONC 34.4 g/L CALC (32.0-36.0); RED BLOOD COUNT 3.46 mill/uL (4.70-6.10); RED CELL DISTRI WIDTH 13.5 % (11.5-15.5)
[2019-10-21 05:43] LABS: ALBUMIN 3.6 g/dL (3.2-5.0); ALKALINE PHOSPHATASE 75 u/l (38-126); ANION GAP 11 (6-22 (CALC)); BILIRUBIN, TOTAL 0.5 mg/dL (0.0-1.4); BUN 20 mg/dL (8-23); BUN/CREATININE RATIO 19 (12-20 (CALC)); CHLORIDE 111 mmol/l (95-108); CREATININE 1.1 mg/dL (0.7-1.3); GFR > 60 ML/MIN (>=60 (CALC)); GFR FOR AFR.AMER. > 60 ML/MIN (>=60 (CALC)); POTASSIUM 4.8 mmol/l (3.5-5.1); SGOT/AST 30 u/l (19-48); SODIUM 138 mmol/l (137-146); TOTAL PROTEIN 6.6 g/dL (6.3-8.2)
[2019-10-21 05:46] LABS: CARBON DIOXIDE 21 mmol/l (22-30)
--- NOTE | 2019-10-21 07:00 | NUR ---
REPORT RECVD FROM ROBE MENDES @START OF SHIFT.
--- NOTE | 2019-10-21 07:33 | NUR ---
DAUGHTER @BEDSIDE; WAITING FOR MD TO MAKE ROUNDS. PT SLEEPING- TALKING IN SLEEP (PER RICKEY). RLL COARSE, LLL WHEEZING, BREATHING EVEN/UNLABORED. SI/S2, RADIAL PULSES STRONG, PEDAL PULSES WEAK. MATTHEWS W/MILD CONTORTION. SKIN INTACT (PER RICKEY), WARM/DRY. CAP REFILL -3SEC. PT IN BRIEF FOR URINARY & STOOL INCONTINENT. IV RFA W/IVF RUNNING. BILAT EYE POST CATARACT.
--- NOTE | 2019-10-21 07:58 | NUR ---
DAUGHTER FEEDING PT BREAKFAST.
--- NOTE | 2019-10-21 08:21 | NUR ---
DR PIZANO @BEDSIDE WITH PT &DAUGHTER.
--- NOTE | 2019-10-21 12:00 | NUR ---
PT FEED LUNCH, PT STATES HE'S NOT HUNGRY BUT CONTINUES TO EAT.
--- NOTE | 2019-10-21 14:04 | NUR ---
DR PIZANO NOTIFIED OF BP OF 174/.
--- NOTE | 2019-10-21 15:06 | NUR ---
PT CLEANED OF URINARY INCONTINENCE, PARTIAL BATH, PARTIAL LINEN CHANGE. PT SITTING UP IN HIGH FOWLERS. PT ASKING FOR A BIKE SO HE CAN LEAVE HERE. BEFORE LEAVING THE ROOM, PT STATES HES GOING TO SLEEP NOW SO I SHOULD LEAVE BC HE SNORES.
--- NOTE | 2019-10-21 17:45 | NUR ---
PT FEED DINNER; ATE 25%. PT MAKING PLEASANT CONVERSATION WITH STAFF.
--- NOTE | 2019-10-21 18:29 | NUR ---
PT UNHOOKING HIMSELF FROM MONITORING EQUIPMENT. IV SITE SECURED WITH COBAN. WILL CONTINUE TO MONITOR.
--- NOTE | 2019-10-21 20:00 | NUR ---
REPORT RECEIVED. ROUNDS AND ASSESSMENT COMPLETE REFER TO FLOWSHEETS. PT ALERT TO NAME ONLY. WHEN ASKED WHERE WE ARE HE STATED [facility]. ADMITS HIS FIRST NAME IS MIKAEL BUT LIKES TO BE CALLED RAVI. REMAINS SINUS RHYTHM 68 ON BEDSIDE TELEMETRY. REMAINS INCONTINENT OF URINE. COMPLETE BATH AND LINEN CHANGED THAN CONDOM CATH APLIED WITH LEG SECURE STRAP DRAINING TO GRAVITY.
--- NOTE | 2019-10-21 22:00 | NUR ---
CONTINUES WITH INCONTINENCE. COMPLETE CARE GIVEN AND CONDOM CATH RE APLIED. VITAL SIGNS REMAIN STABLE. REFER TO FLOWSHEET FOR COMPLETE ASSESSMENT.
[2019-10-22] VITALS (7 sets, daily range): BP systolic 101–132; BP diastolic 62–84
--- NOTE | 2019-10-22 | NUR ---
RESTING QUIETLY WITH EYES CLOSED AND FACE RELAXED. INTERMITTENT TALKING OUT LOUD IN ROOM. UNABLE TO UNDERSTAND. WHEN ASKED ABOUT IT PT DOES NOT REPLY. REMIANS STABLE SR 78.
--- NOTE | 2019-10-22 02:00 | NUR ---
WAKENS INTERMITTENTLY. RESTLESS AND FIDGETING AT TIMES. PULLS ALL MONITOR LEADS OFF. PULLS OFF CONDOM CATHETER. ATTEMPTS TO GET OUT OF BED AND STATES HE IS GETTING UP AND GOING FOR A WALK. ATTEMPTED TO REORIENT INCLUDING BEDREST ORDERS IN HOSPITAL. BED ALARM IN PLACE AND COMPLETE CARE GIVEN X3 WITH CONDOM CATH RE APLIED.
--- NOTE | 2019-10-22 04:00 | NUR ---
PT RESTING IN BED WITH EYES CLOSED AND FACE RELAXED. IS NOT PULLING AT LEADS AT THIS TIME. APPEARS TO BE GETTING SOME REST. CONDOM CATH STAYING IN PLACE AT THIS TIME. WILL CONTINUE TO MONITOR.
--- NOTE | 2019-10-22 06:12 | NUR ---
CONTINUES TO REST WITH EYES CLOSED AND FACE RELAXED. CONDOM CATH REMAINS IN PLACE. NO CHANGE FROM PREVIOUS NOTE. REMAINS SR WITH PACS.
--- NOTE | 2019-10-22 07:00 | NUR ---
RECVD REPORT FROM DORCAS NARVAEZ @START OF SHIFT.
--- NOTE | 2019-10-22 07:07 | NUR ---
BOOTH CASHIER @BEDSIDE, CLEANING PT OF URINARY INCONTENCE. PT SQUIRMS AROUND BED, BUT READJUSTED UP IN BED BY STAFF x2.
[2019-10-22 07:53] LABS: HEMATOCRIT 37.4 % (39.0-50.0); HEMOGLOBIN 13.1 g/dl (14.0-18.0); IMMATURE GRANULOCYTES 1.1 % (0.0-5.0); MEAN CELL VOLUME 100.3 fL CALC (80.0-100.0); MEAN CORPUSCULAR HGB 35.1 pG CALC (26.0-32.0); NEUT# 7.04 thou/uL (1.82-7.42); RED BLOOD COUNT 3.73 mill/uL (4.70-6.10); RED CELL DISTRI WIDTH 13.8 % (11.5-15.5)
[2019-10-22 08:09] LABS: ALBUMIN 4.2 g/dL (3.2-5.0); ALKALINE PHOSPHATASE 82 u/l (38-126); BUN 21 mg/dL (8-23); BUN/CREATININE RATIO 18 (12-20 (CALC)); CHLORIDE 105 mmol/l (95-108); CREATININE 1.1 mg/dL (0.7-1.3); GFR > 60 ML/MIN (>=60 (CALC)); GFR FOR AFR.AMER. > 60 ML/MIN (>=60 (CALC)); POTASSIUM 4.5 mmol/l (3.5-5.1); SGOT/AST 41 u/l (19-48); SODIUM 139 mmol/l (137-146); TOTAL PROTEIN 7.7 g/dL (6.3-8.2)
[2019-10-22 08:11] LABS: ANION GAP 13 (6-22 (CALC)); BILIRUBIN, TOTAL 0.8 mg/dL (0.0-1.4); CARBON DIOXIDE 26 mmol/l (22-30)
[2019-10-22] MEDS ORDERED: AMLODIPINE BESYL5 MG PO (09:10)
--- NOTE | 2019-10-22 11:30 | NUR ---
PT BEING FEED LUNCH BY STAFF. PT CONVERSING WITH STAFF; ABNORMAL.
--- NOTE | 2019-10-22 14:32 | NUR ---
pt out the door with dh&r by wc with all pts belongings including teeth.
--- NOTE | 2019-10-22 14:35 | NUR ---
pts daughter called to inform of pts transfers.
== END 2019-10-22 14:32 | DRG 316 ==
LOC: ED 02:06 → ED-I 02:22 → ED 03:16 → ICU 03:17
PROVIDERS: Emergency Medicine; Internal Medicine; ADMIT Internal Medicine; ATTEND Internal Medicine
DX: I95.9 Hypotension, unspecified (principal); R00.1 Bradycardia, unspecified; I11.0 Hypertensive heart disease with heart failure; I50.9 Heart failure, unspecified; F03.90 Unspecified dementia, unspecified severity, without behavioral disturbance, psychotic disturbance, mood disturbance, and anxiety; I48.91 Unspecified atrial fibrillation; I25.10 Atherosclerotic heart disease of native coronary artery without angina pectoris; Z66 Do not resuscitate; Z74.01 Bed confinement status
CPT/HCPCS: J0461; S0164

== ENCOUNTER 2020-05-15 21:38 | Inpatient (IN) | payer MEDICARE, BC, OTHER ==
[~2020-05-15] VITALS: Ht 167.6 cm; Wt 91.8 kg
[~2020-05-15 21:38] MED LIST changes: +AMLODIPINE BESYL5 MG PO
--- NOTE | 2020-05-15 21:39 | NUR ---
BY EMS TO ROOM
[2020-05-15] MEDS ORDERED: MAPAP500 MG PO (22:03)
[2020-05-15 22:25] LABS: URINE BILIRUBIN - DIPSTICK NEGATIVE (NEGATIVE); URINE BLOOD DIPSTICK LARGE (NEGATIVE); URINE COLOR YELLOW; URINE GLUCOSE - DIPSTICK NEGATIVE (NEGATIVE); URINE KETONE NEGATIVE (NEGATIVE); URINE NITRITE - DIPSTICK NEGATIVE (Negative); URINE PROTEIN - DIPSTICK 100 mg/dL (NEG-TRACE); URINE SPECIFIC GRAVITY 1.015; URINE UROBILINOGEN - DIPSTICK 0.2 E.U./dL (0.2)
[2020-05-15 22:39] LABS: HEMATOCRIT 42.4 % (39.0-50.0); HEMOGLOBIN 14.1 g/dl (14.0-18.0); IMMATURE GRANULOCYTES 1.7 % (0.0-5.0); MEAN CELL VOLUME 98.8 fL CALC (80.0-100.0); MEAN CORPUSCULAR HGB 32.9 pG CALC (26.0-32.0); MEAN CORPUSCULAR HGB CONC 33.3 g/dL CAL (32.0-36.0); NEUT# 4.24 thou/uL (1.82-7.42); RED BLOOD COUNT 4.29 mill/uL (4.70-6.10); RED CELL DISTRI WIDTH 13.3 % (11.5-15.5)
[2020-05-15 22:40] LABS: URINE EPITHELIAL CELLS FEW EPI/hpf (0-FEW); URINE LEUK ESTERASE NEGATIVE (NEGATIVE); URINE RBC >100 RBC/hpf (0-5)
[2020-05-15 22:41] LABS: URINE BACTERIA MODERATE hpf
[2020-05-15 22:46] LABS: ALBUMIN 4.2 g/dL (3.2-5.0); ALKALINE PHOSPHATASE 93 u/l (38-126); ANION GAP 10 (6-22 (CALC)); BUN 17 mg/dL (8-23); BUN/CREATININE RATIO 18 (12-20 (CALC)); CARBON DIOXIDE 31 mmol/l (22-30); CHLORIDE 100 mmol/l (95-108); CREATININE 0.9 mg/dL (0.7-1.3); GFR > 60 ML/MIN (>=60 (CALC)); GFR FOR AFR.AMER. > 60 ML/MIN (>=60 (CALC)); POTASSIUM 4.7 mmol/l (3.5-5.1); SGOT/AST 29 u/l (19-48); SODIUM 137 mmol/l (137-146); TOTAL PROTEIN 7.8 g/dL (6.3-8.2)
[2020-05-15 22:50] LABS: BILIRUBIN, TOTAL 0.4 mg/dL (0.0-1.4)
[2020-05-15 22:53] LABS: ACT PARTIAL THROMBO TIME 21.7 SECONDS (20.0-32.5); PROTHROMBIN TIME 9.9 SECONDS (9.0-12.5)
--- NOTE | 2020-05-15 23:55 | NUR ---
PT RESTING. MOANS AND YELLS WHEN ANY PROCEDURE IS DONE...EVEN IF JUST WIPING ARM WITH ALCOHOL. PREPARING FOR ADMISSION
--- NOTE | 2020-05-16 00:30 | NUR ---
REPORT TO FLOOR. ROBE OLIVARES/MED-SURG
--- NOTE | 2020-05-16 01:15 | NUR ---
TO FLOOR WITH MASK FOR COVID PRECAUTIONS. LOMAX EMPTIED FOR 300CC OF LIGHT BISHOP URINE....NOW DRAINING LT YELLOW URINE. PT SLID TO BED WITH 3 STAFF MEMBERS. PT REMAINS ALERT.
[2020-05-16 01:25] VITALS: BP 96/50
--- NOTE | 2020-05-16 01:25 | NUR ---
PT ARRIVED TO FLOOR VIA STRETCHER ACCOMPAINED BY ER STAFF. PT ALERT AND ORIENTED X2. RESIDENT AT [facility], SENT HERE FOR HEMATURIA. SLID FROM STRETCHER TO BED X3 PERSON ASSIST. PT IS MAX ASSIST WITH LIMITED ROM TO BILATERAL UPPER AND LOWER EXTREMITIES. PT DENIES ANY PAIN OR DISCOMFORT. NO APPARENT RESPIRATORY DISTRESS NOTED. RESPIRATIONS EVEN AND UNLABORED. SKIN INTACT. SCARS NOTED TO LEFT HAND AND LEFT THIGH. LOMAX CATHETER, 16F PLACED IN ED, NOTED WITH PINK TINGED OUTPUT. PT INCONTINENT OF BOWEL AND BLADDER, CUSTODIAL NURSE REPORTS LAST DOCUMENTED BM 05/13/20. PT ORIENTED TO ROOM AND CALL LIGHT SYSTEM. BED ALARM SET AND STAFF MEMBER TO MONITOR AT BEDSIDE DUE TO REPORT FROM CUSTODIAL THAT PT IS FREQUENT FALL RISK. CALL LIGHT WITHIN REACH. WILL CONTINUE TO MONITOR.
--- NOTE | 2020-05-16 01:25 | NUR ---
PT ARRIVED TO FLOOR VIA STRETCHER ACCOMPAINED BY ER STAFF. PT ALERT AND ORIENTED X2. RESIDENT AT [facility], SENT HERE FOR HEMATURIA. SLID FROM STRETCHER TO BED X3 PERSON ASSIST. PT IS MAX ASSIST WITH LIMITED ROM TO BILATERAL UPPER AND LOWER EXTREMITIES. PT DENIES ANY PAIN OR DISCOMFORT. NO APPARENT RESPIRATORY DISTRESS NOTED. RESPIRATIONS EVEN AND UNLABORED. SKIN INTACT. SCARS NOTED TO RIGHT HAND AND LEFT THIGH. LOMAX CATHETER, 16F PLACED IN ED, NOTED WITH PINK TINGED OUTPUT. PT INCONTINENT OF BOWEL AND BLADDER, [facility] NURSE REPORTS LAST DOCUMENTED BM 05/13/20. PT ORIENTED TO ROOM AND CALL LIGHT SYSTEM. BED ALARM SET AND STAFF MEMBER TO MONITOR AT BEDSIDE DUE TO REPORT FROM [facility] THAT PT IS FREQUENT FALL RISK. CALL LIGHT WITHIN REACH. WILL CONTINUE TO MONITOR.
[2020-05-16 04:05] VITALS: BP 101/61
--- NOTE | 2020-05-16 04:30 | NUR ---
PT RESTING IN BED. NO APPARENT DISTRESS NOTED. LOMAX REMAINS PATENT, CLEAR PINK TINGED OUTPUT NOTED. VSS. CALL LIGHT WITHIN REACH. WILL CONTINUE TO MONITOR.
[2020-05-16 04:59] LABS: HEMOGLOBIN 13.5 g/dl (14.0-18.0); IMMATURE GRANULOCYTES 1.1 % (0.0-5.0); MEAN CELL VOLUME 99.8 fL CALC (80.0-100.0); MEAN CORPUSCULAR HGB 32.8 pG CALC (26.0-32.0); MEAN CORPUSCULAR HGB CONC 32.9 g/dL CAL (32.0-36.0); NEUT# 5.5 thou/uL (1.82-7.42); RED BLOOD COUNT 4.11 mill/uL (4.70-6.10); RED CELL DISTRI WIDTH 13.3 % (11.5-15.5)
[2020-05-16 05:11] LABS: ALBUMIN 3.9 g/dL (3.2-5.0); ALKALINE PHOSPHATASE 83 u/l (38-126); ANION GAP 11 (6-22 (CALC)); BILIRUBIN, TOTAL 0.4 mg/dL (0.0-1.4); BUN 16 mg/dL (8-23); BUN/CREATININE RATIO 16 (12-20 (CALC)); CARBON DIOXIDE 29 mmol/l (22-30); CHLORIDE 103 mmol/l (95-108); GFR > 60 ML/MIN (>=60 (CALC)); GFR FOR AFR.AMER. > 60 ML/MIN (>=60 (CALC)); POTASSIUM 4.5 mmol/l (3.5-5.1); SGOT/AST 21 u/l (19-48); SODIUM 138 mmol/l (137-146); TOTAL PROTEIN 6.9 g/dL (6.3-8.2)
--- NOTE | 2020-05-16 07:15 | NUR ---
REPORT RECEIVED FROM ROBE OLIVARES.
--- NOTE | 2020-05-16 07:36 | NUR ---
PT note Patient is screened for PT intervention and it is felt he would benefit if medical agrees
--- NOTE | 2020-05-16 09:05 | NUR ---
PT RESTING IN SEMI FOWLERS POSITION,A&O TO PERSON AND TIME BUT EASILY RE-ORIENTED;VS OBTAINED AND ASSESSMENT COMPLETED;PT DENIES ANY CURRENT PAIN OR DISCOMFORTS,PAIN SCALE AND REPORTING EDUCATED;RESPIRATIONS EVEN AND UNLABORED ON RA,CLEAR/DIMINISHED LUNG SOUNDS;ABDOMEN DISTENDED/SOFT ON PALPATION AND ACTIVE IN ALL 4 QUADRANTS, PT MEDICATED WITH SCHEDULED SURFAK AND PRN MOM W/ PRUNE JUICE AND MIRLAX TO ASSIST IN BOWEL CARE;LOMAX CATHETER PATENT DRAING PINK/YELLOW URINE TO GRAVITY WITH EASE;SKIN INTACT;WEAK PEDAL PULSES WITH +2 EDEMA NOTED TO BLE;#22G TO RFA FLUSHED AND PATENT,SITE APPEARS HEALTHY;PT REMAINS IN AIR/CONTACT ISOLATION;PT DENIES ANY ADDITIONAL NEEDS AT THIS TIME AND IS ENCOURAGED TO CALL FOR ASSISTANCE IF NEEDED;BED IN THE LOWEST POSITION WITH CALL LIGHT IN REACH;WILL CONTINUE TO MONITOR
[2020-05-16 09:08] VITALS: BP 91/58
--- NOTE | 2020-05-16 11:08 | NUR ---
CALL RECEIVED FROM . PER MD DR. CAT WOULD BE IN TO SEE PT THIS EVENING OR FIRST THING IN THE MORNING ON 05/17/20.
--- NOTE | 2020-05-16 12:40 | NUR ---
PT RESTING IN SEMI FOWLERS POSITION;RESPIRATIONS EVEN AND UNLABORED ON RA;PT DENIES ANY CURRENT PAIN OR DISCOMFORTS;LOMAX CATHETER REMAINS PATENT DRAINING PINK/CLEAR URINE;IV SITE PATENT AND ABX STARTED AT THIS TIME;PT DENIES ANY ADDITIONAL NEEDS;ASSESSMENT REMAINS UNCHANGED ENCOURAGED TO CALL FOR ASSISTANCE IF NEEDED;BED IN THE LOWEST POSITION WITH CALL LIGHT IN REACH;WILL CONTINUE TO MONITOR
--- NOTE | 2020-05-16 16:35 | NUR ---
PT APPEARS TO BE SLEEPING IN SEMI FOWLERS POSITION;RESPIRATIONS EVEN AND UNLABORED ON RA;NO S/S OF DISTRESS NOTED;IV SITE PATENT;LOMAX CATHETER REMAINS WITH PINK/CLEAR URINE DRAINING TO GRAVITY WITH EASE;ALL SAFETY PRECAUTIONS REMAIN IN PLACE;ASSESSMENT REMAINS UNCHANGED AT THIS TIME;FALL PRECAUTIONS IN PLACE WITH BED IN THE LWOEST POSITION AND CALL LIGHT IN REACH;WILL CONTINUE TO MONITOR
--- NOTE | 2020-05-16 16:57 | NUR ---
PT TRANSPORTED TO MED/SURG ROOM 271 IN STABLE CONDITION VIA HOSPITAL BED.
[2020-05-16 17:45] VITALS: BP 128/81
[2020-05-16 19:00] VITALS: BP 101/76
--- NOTE | 2020-05-16 19:27 | NUR ---
RECEIVED REPORT FROM NURSE REED, PATIENT IN BED, ON HIGH FOWLERS POSITION, CONNECTED TO FOELT CATHETER DRAINING ROSALEE COLORED URINE, CALL LIGHT IN REACH, BED ALARM IN PLACE.
--- NOTE | 2020-05-16 20:00 | NUR ---
PATIENT ALERT ORINETED X 2, ABLE TO MAKE NEEDS KNOWN, WITH SALIN LOCK ON RFA G22 PATENT FLUSHES WELL, LBM 05/16, ACTIVE BOWEL SOUNDS ON ALL QUADRANTS, WITH INDWLLING LOMAX CATHETER DRAINING ROSALEE COLORED URINE, LUNG SOUNDS CLEAR/DIMINISHED, CALL LIGHT AT REACH, BED ALARM IN PLACE.
--- NOTE | 2020-05-16 21:20 | NUR ---
CONTACTED DR. PIZANO [facility]IFIED [facility]/O OF LEFT SHOULDER PAIN WITH ORDERS MADE AND SENT TO PHARMACY.
--- NOTE | 2020-05-16 23:48 | NUR ---
PATIENT AWAKE AT THIS TIME, BREATHING EVEN UNLABORED, DU ZOSYN GIVEN, FOLY CATHETER DRAINING CRANBERRY COLORED URINE, NO CLOTS NOTD, WILL CONTINUE TO MONITOR.
[2020-05-17 04:00] VITALS: BP 89/69
--- NOTE | 2020-05-17 04:33 | NUR ---
PATIENT APPEARS TO BE SLEEPING BREATHING EEVEN UNLABORED, URIN OUTPUT STILL CRANBERRY IN COLOR, FLUIDS GIVEN CALL LIGHT AT REACH.
--- NOTE | 2020-05-17 04:48 | NUR ---
PATIENT APPEARS TO BE SLEEPING BREATHING EEVEN UNLABORED, URIN OUTPUT STILL CRANBERRY IN COLOR, WILL CONTUNE TO MONITOR CALL LIGHT AT REACH.
[2020-05-17 05:07] LABS: HEMATOCRIT 40.7 % (39.0-50.0); HEMOGLOBIN 13.5 g/dl (14.0-18.0); MEAN CELL VOLUME 99.3 fL CALC (80.0-100.0); MEAN CORPUSCULAR HGB 32.9 pG CALC (26.0-32.0); MEAN CORPUSCULAR HGB CONC 33.2 g/dL CAL (32.0-36.0); RED BLOOD COUNT 4.1 mill/uL (4.70-6.10); RED CELL DISTRI WIDTH 13.4 % (11.5-15.5)
[2020-05-17 05:23] VITALS: BP 92/64
[2020-05-17 05:42] LABS: ANION GAP 12 (6-22 (CALC)); BUN 18 mg/dL (8-23); BUN/CREATININE RATIO 15 (12-20 (CALC)); CARBON DIOXIDE 27 mmol/l (22-30); CHLORIDE 103 mmol/l (95-108); CREATININE 1.2 mg/dL (0.7-1.3); GFR 58 ML/MIN (>=60 (CALC)); GFR FOR AFR.AMER. > 60 ML/MIN (>=60 (CALC)); MAGNESIUM 2.3 mg/dL (1.6-2.3); POTASSIUM 4.6 mmol/l (3.5-5.1); SODIUM 137 mmol/l (137-146)
--- NOTE | 2020-05-17 08:00 | NUR ---
REPOSTIONED IN BED FOR COMFORT. HAD LARGE BROWN STOOL AND PERSONAL CARE GIVEN. BOWEL SOUNDS SLUGGISH. RESPONDS TO VERBAL DIRECTION. IV PRESENT RFA AND SALINE LOCKED. LOMAX PATENT WITH BLOOD TINGED URINE PRESENT.
--- NOTE | 2020-05-17 08:40 | NUR ---
AT BEDSIDE DISCUSSING POC.
[2020-05-17 09:36] VITALS: BP 114/61
--- NOTE | 2020-05-17 12:20 | NUR ---
BLADDER SCAN OBTAINED PER ORDER. 128ML OF URINE RESULTED.[facility]IGO ANRP NOTIFIED;NO NEW ORDERS RECEIVED;WILL CONTINUE TO MONITOR
--- NOTE | 2020-05-17 12:28 | NUR ---
NOTIFIED [facility] OF POSSIBLE OR CASE TOMORROW BY .
--- NOTE | 2020-05-17 12:39 | NUR ---
PT. ALERT RESTING IN BED. REPOSITIONED IN BED. URINE IN LOMAX CONTINUES TO BE BLOOD TINGED. 22G RFA PATENT. DENIES PAIN AT THIS TIME.
--- NOTE | 2020-05-17 14:50 | NUR ---
RESP PANEL SENT TO LAB PER ORDER.
--- NOTE | 2020-05-17 16:13 | NUR ---
PT. ALERT WITH CONFUSION. COVID SWAB DONE AND SENT TO LAB. PT. MONIE CONTINUES TO HAVE BLOOD TINGE. NOTED IT APPEARS SLIGHTLY DARKER THAN EARLIER IN SHIFT. WILL BE GOING FOR A CYSTOSCOPY IN THE AM.
[2020-05-17 16:50] VITALS: BP 106/77
[2020-05-17 19:00] VITALS: BP 109/75
--- NOTE | 2020-05-17 19:39 | NUR ---
ECEIVED REPORT FROM NURSE DIXON PATIENT RESTING IN BED, EYES CLOSED, REATHING UNLABORED, LOMAX CATHETER DRAINING CARANBERRY COLORED URINE, CALL IGHT AT REACH.
--- NOTE | 2020-05-17 19:41 | NUR ---
NOTIFIED DR MINAYA THAT PATIENT IS TO BE NPO POST MIDNIGHT WITH ORDER START NORMAL SALINE @ 30CC/HR AT 12 MIGNIGHT.
--- NOTE | 2020-05-17 21:58 | NUR ---
PATIENT ALERT OIRIENTED X 2, WITH SALINE LOCK ON RFA G22, LBM 05/17, BOWEL SOUNDS ACTIVE ALL QUADRANTS, NO TENDERNESS NOTED, WITH INDWELLING LOMAX CATHETER INSERTED ON 05/15 DRAINING BISHOP RED URINE, BREATHING EVEN AND UNLABORED, CALL LIGHT AT REACH.
--- NOTE | 2020-05-17 22:18 | NUR ---
EKG DONE AT THIS TIME, PORTABLE CXR DONE.
--- NOTE | 2020-05-17 22:19 | NUR ---
SPOKE TO PATIENT JONNY, STATED THAT SHE WOULD VISIT [facility] AROUND 9AM TO SIGN THE CONSENT.
--- NOTE | 2020-05-17 23:58 | NUR ---
PERICARE DONE, LARGE BM LOOSE, PATIENT C/O LEFT SHOULDER PAIN, PRN TRAMADOL GIVEN WILL REEVALUATE, CURRENTLY RESTING IN BED, EVEN UNLABORED BREATHING EDUCATED NPO STATUS MIDNIGHT.
[2020-05-18] VITALS (9 sets, daily range): BP systolic 98–127; BP diastolic 52–84
--- NOTE | 2020-05-18 04:18 | NUR ---
PATIENT RESTING IN BED, BREATHING EVEN UNLABORED, LOMAX CATHETER CONNECTED TO URINE BAG STILL DRAINING BISHOP COLORED URINE, CALL LIGHT AT REACH, BED ALARM IN PLACE.
[2020-05-18 05:23] LABS: HEMATOCRIT 41.6 % (39.0-50.0); HEMOGLOBIN 13.7 g/dl (14.0-18.0); MEAN CORPUSCULAR HGB 32.9 pG CALC (26.0-32.0); MEAN CORPUSCULAR HGB CONC 32.9 g/dL CAL (32.0-36.0); RED BLOOD COUNT 4.16 mill/uL (4.70-6.10); RED CELL DISTRI WIDTH 13.5 % (11.5-15.5)
[2020-05-18 05:35] LABS: ANION GAP 12 (6-22 (CALC)); BUN 18 mg/dL (8-23); BUN/CREATININE RATIO 16 (12-20 (CALC)); CARBON DIOXIDE 26 mmol/l (22-30); CHLORIDE 104 mmol/l (95-108); CREATININE 1.2 mg/dL (0.7-1.3); GFR 58 ML/MIN (>=60 (CALC)); GFR FOR AFR.AMER. > 60 ML/MIN (>=60 (CALC)); MAGNESIUM 2.2 mg/dL (1.6-2.3); POTASSIUM 4.6 mmol/l (3.5-5.1); SODIUM 137 mmol/l (137-146)
--- NOTE | 2020-05-18 09:00 | NUR ---
PT. LYING ON RIGHT SIDE IN BED. HAD MODERATE AMOUT OF STOOL & WAS WASHED IN COLE AREA. NPO FOR CYSTOSCOPY THIS MORNING. 22 RIGHT fa patent and flushes easily. NS AT 30CC AN HOUR INFUSING WITHOUT DIFFICULTY. MAX ASSIT WITH CARE. TO OR THIS AM FOR CYSTOSCOPY.
--- NOTE | 2020-05-18 17:30 | NUR ---
PT. RETURNED FROM CYSTOSCOPY TODAY WITH NS IRRIGATION POST CYSTOSCOPY. SOME BRIGHT RED BLOOD DISCHARGE FROM AROUND URINARY MEATUS PADDED WITH DRAIN SPONGES. POSITIONED BLANKETS TO PREVENT HIM FROM PULLING OUT CATHETER. MAX ASSIST FOR CARE.
--- NOTE | 2020-05-18 19:45 | NUR ---
PT RESTING IN BED, NO SIGNS OF DISTRESS NOTED, RESP EVEN AND UNLABORED. 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 ANASARCA, 3WAY LOMAX EDEMA TO SCROTUM, LEG STRAP IN PLACE. CBI DRAINING CRANBERRY URINE IN BAG, BAG #2 AT THIS TIME. SCD'S IN PLACE, ASSESSMENT COMPLETED, CALL LIGHT IN REACH,CONTINUE TO MONITOR.
--- NOTE | 2020-05-18 23:54 | NUR ---
IV MARIANO LINARES, NO SIGNS OF DISTRESS NOTED, RESP EVEN AND UNLABORED. CBI CONTINUES, PEACH COLORED DRAINAGE. CALL LIGHT IN REACH,CONTINUE TO MONITOR.
--- NOTE | 2020-05-19 03:54 | NUR ---
PT RESTING IN BED, NO SIGNS OF DISTRESS NOTED, RESP EVEN AND UNLABORED. BAG #4 OF CBI DRAINING TO GRAVITY AT THIS TIME. PEACH COLORED DRAINAGE IN BAG NO CLOTS NOTED. BED ALARM FOR SAFETY, CALL LIGHT IN REACH,CONTINUE TO MONITOR.
[2020-05-19 04:30] VITALS: BP 105/69
[2020-05-19 05:13] LABS: HEMATOCRIT 42.8 % (39.0-50.0); HEMOGLOBIN 13.8 g/dl (14.0-18.0); MEAN CELL VOLUME 101.7 fL CALC (80.0-100.0); MEAN CORPUSCULAR HGB 32.8 pG CALC (26.0-32.0); MEAN CORPUSCULAR HGB CONC 32.2 g/dL CAL (32.0-36.0); RED BLOOD COUNT 4.21 mill/uL (4.70-6.10); RED CELL DISTRI WIDTH 13.8 % (11.5-15.5)
[2020-05-19 05:36] LABS: ANION GAP 13 (6-22 (CALC)); BUN 15 mg/dL (8-23); BUN/CREATININE RATIO 12 (12-20 (CALC)); CARBON DIOXIDE 22 mmol/l (22-30); CHLORIDE 109 mmol/l (95-108); CREATININE 1.3 mg/dL (0.7-1.3); GFR 52 ML/MIN (>=60 (CALC)); GFR FOR AFR.AMER. > 60 ML/MIN (>=60 (CALC)); MAGNESIUM 2.2 mg/dL (1.6-2.3); POTASSIUM 4.5 mmol/l (3.5-5.1); SODIUM 139 mmol/l (137-146)
[2020-05-19 07:46] VITALS: BP 93/79
--- NOTE | 2020-05-19 09:00 | NUR ---
PT SEEN AT REST IN THE BED, NO DISTRESS NOTED. CBI CONTINUES WITH RESULTING ROSALEE URINE, LITTLE BLOOD SEEN. PT FED BY AIDE FOR BREAKFAST, LATER HAD BM. DAUGHTER HAS COME FOR A VISIT THIS MORNING.
--- NOTE | 2020-05-19 13:00 | NUR ---
PT CONTINUES WITH CBI, NO CHANGE IN STATUS. LOMAX DRAINS ROSALEE URINE WITH MINIMAL BLOOD SEEN. PT SPEAKS SHORT ANSWERS WITH PROMPTS, DENIES PAIN OR DISCOMFORT.
[2020-05-19 14:50] VITALS: BP 129/76
[2020-05-19 18:49] VITALS: BP 99/61
--- NOTE | 2020-05-19 18:50 | NUR ---
REPORT RECEIVED FROM DORCAS HAIRSTON. PT RESTING IN BED, NO S/S OF DISTRESS AT THIS TIME. WILL CONTINUE TO MONITOR.
--- NOTE | 2020-05-19 19:50 | NUR ---
PT RESTING IN BED. RESPIRATIONS EVEN AND UNLABORED ON O2, LUNGS SOUND DIMINISHED. PEDAL PULSES ARE STRONG. PT DENIES ANY PAIN OR DISCOMFORT AT THIS TIME. CBI IN PROGRESS, PT TOLERATING WELL. SAFETY PRECAUTIONS IN PLACE. WILL CONTINUE TO MONITOR.
--- NOTE | 2020-05-20 | NUR ---
PT RESTING IN BED, RESPIRATIONS EVEN AND UNLABORED ON O2 @ 3L VIA NC. NO S/S OF DISTRESS AT THIS TIME. WILL CONTINUE TO MONT[place].
--- NOTE | 2020-05-20 00:02 | NUR ---
PT RESTING IN BED BED NO S/S OF DISTRESS AT THIS TIME, SAFETY PRECAUTIONS IN PLACE. WILL CONTINUE TO MONITOR.
--- NOTE | 2020-05-20 04:29 | NUR ---
PT RESTING IN BED, NO S/S OF DISTRESS AT THIS TIME. SAFETY PRECAUTIONS IN PLACE. WILL CONTINUE TO MONITOR.
[2020-05-20 04:42] VITALS: BP 119/73
[2020-05-20 05:02] LABS: HEMOGLOBIN 12.1 g/dl (14.0-18.0); MEAN CORPUSCULAR HGB CONC 33.3 g/dL CAL (32.0-36.0); RED BLOOD COUNT 3.56 mill/uL (4.70-6.10)
[2020-05-20 05:09] LABS: HEMATOCRIT 36.3 % (39.0-50.0)
[2020-05-20 05:31] LABS: CREATININE 1.4 mg/dL (0.7-1.3)
[2020-05-20 08:06] VITALS: BP 129/82
--- NOTE | 2020-05-20 08:06 | NUR ---
PT SITTING IN BED. A&O TO SELF AND PLACE. PT STATES THAT HE IS IN THE HOSPITAL. ORIENTED PT TO CURRENT DATE. LOMAX CATHETER IN PLACE DRAINING VIA GRAVITY. NO PHYSICAL APPEARANCE OF PAIN AT THIS TIME. ASSESSMENT COMPLETED. DISCUSSED POC. CALL LIGHT IN REACH. CONTINUE TO MONITOR.
--- NOTE | 2020-05-20 08:25 | NUR ---
DR CAT AT BEDSIDE
--- NOTE | 2020-05-20 08:35 | NUR ---
DR MINAYA AND RODRIGO ARPN AT BEDSIDE DISCUSSING POC
[2020-05-20] MEDS ORDERED: TYLENOL500 MG PO (09:54)
[2020-05-20] MEDS ORDERED: IRON325 M1 PO (09:54)
[2020-05-20] MEDS ORDERED: MULTI VIT PO (09:55)
[2020-05-20] MEDS ORDERED: AMLODIPINE BESYL5 MG PO (09:55)
[2020-05-20] MEDS ORDERED: KEFLEX500 M1 PO (11:19)
--- NOTE | 2020-05-20 11:32 | NUR ---
PT SITTING IN BED EATING LUNCH. NO DISTRESS NOTED. CALL LIGHT IN REACH. CONTINUE TO MONITOR.
--- NOTE | 2020-05-20 14:20 | NUR ---
Discharge instructions given. Reinforcement needed. Discharged in stable condition via wheelchair to R accompanied by staff. All belongings sent with pt.
--- NOTE | 2020-05-20 14:24 | NUR ---
REPORT GIVEN TO JOSE TOSCANO AND [facility]
== END 2020-05-20 14:20 | DRG 662 ==
LOC: ED 21:38 → ED-I 23:22 → ED 23:55 → MS2 23:56
PROVIDERS: Emergency Medicine; Nurse Practitioner; ADMIT Internal Medicine; ATTEND Internal Medicine
PROC: 0T9B70Z Drainage of Bladder with Drainage Device, Via Natural or Artificial Opening (ICD-10-PCS; 2020-05-15)
PROC: 0TCB8ZZ Extirpation of Matter from Bladder, Via Natural or Artificial Opening Endoscopic (ICD-10-PCS; principal; 2020-05-18)
PROC: 0W3R8ZZ Control Bleeding in Genitourinary Tract, Via Natural or Artificial Opening Endoscopic (ICD-10-PCS; 2020-05-18)
DX: N30.01 Acute cystitis with hematuria (principal); J18.9 Pneumonia, unspecified organism; N13.8 Other obstructive and reflux uropathy; I95.9 Hypotension, unspecified; N40.1 Benign prostatic hyperplasia with lower urinary tract symptoms; I11.0 Hypertensive heart disease with heart failure; I50.9 Heart failure, unspecified; F03.90 Unspecified dementia, unspecified severity, without behavioral disturbance, psychotic disturbance, mood disturbance, and anxiety; I48.91 Unspecified atrial fibrillation; I25.10 Atherosclerotic heart disease of native coronary artery without angina pectoris; N20.0 Calculus of kidney; F41.9 Anxiety disorder, unspecified; F32.9 Major depressive disorder, single episode, unspecified; E03.9 Hypothyroidism, unspecified; K59.00 Constipation, unspecified; M25.512 Pain in left shoulder; N28.9 Disorder of kidney and ureter, unspecified; Z86.73 Personal history of transient ischemic attack (TIA), and cerebral infarction without residual deficits; Z20.828 Contact with and (suspected) exposure to other viral communicable diseases
CPT/HCPCS: G0378; J1650

== ENCOUNTER 2020-06-13 03:33 | Emergency (ER) | payer MEDICARE, BC, OTHER ==
[~2020-06-13] VITALS: Ht 167.6 cm; Wt 82.0 kg
[~2020-06-13 03:33] MED LIST changes: +IRON325 M1 PO; +KEFLEX500 M1 PO; +MAPAP500 MG PO; +TYLENOL500 MG PO
[2020-06-13] MEDS ORDERED: FINASTERIDE5 MG PO (03:49)
[2020-06-13] MEDS ORDERED: DULCOLAX10 MG RE (03:52)
[2020-06-13 04:29] LABS: URINE BILIRUBIN - DIPSTICK NEGATIVE (NEGATIVE); URINE BLOOD DIPSTICK LARGE (NEGATIVE); URINE CLARITY TURBID; URINE COLOR YELLOW; URINE GLUCOSE - DIPSTICK NEGATIVE (NEGATIVE); URINE LEUK ESTERASE MODERATE (Negative); URINE NITRITE - DIPSTICK POSITIVE (Negative); URINE PROTEIN - DIPSTICK 100 mg/dL (NEG-TRACE); URINE SPECIFIC GRAVITY 1.025; URINE UROBILINOGEN - DIPSTICK 0.2 E.U./dL (0.2)
[2020-06-13 04:30] LABS: URINE KETONE NEGATIVE (NEGATIVE)
[2020-06-13 04:45] LABS: URINE BACTERIA MANY hpf; URINE EPITHELIAL CELLS MODERATE EPI/hpf (0-FEW); URINE RBC >100 RBC/hpf (0-5); URINE WBC >100 WBC/hpf (0-5)
[2020-06-13 05:25] LABS: HEMATOCRIT 41.2 % (39.0-50.0); HEMOGLOBIN 13.5 g/dl (14.0-18.0); IMMATURE GRANULOCYTES 2.1 % (0.0-5.0); MEAN CELL VOLUME 101.7 fL CALC (80.0-100.0); MEAN CORPUSCULAR HGB 33.3 pG CALC (26.0-32.0); MEAN CORPUSCULAR HGB CONC 32.8 g/dL CAL (32.0-36.0); NEUT# 7.02 thou/uL (1.82-7.42); RED BLOOD COUNT 4.05 mill/uL (4.70-6.10); RED CELL DISTRI WIDTH 13.1 % (11.5-15.5)
[2020-06-13 05:51] LABS: ALBUMIN 4.1 g/dL (3.2-5.0); ALKALINE PHOSPHATASE 90 u/l (38-126); BUN 14 mg/dL (8-23); BUN/CREATININE RATIO 14 (12-20 (CALC)); CARBON DIOXIDE 29 mmol/l (22-30); CHLORIDE 102 mmol/l (95-108); GFR > 60 ML/MIN (>=60 (CALC)); GFR FOR AFR.AMER. > 60 ML/MIN (>=60 (CALC)); SODIUM 136 mmol/l (137-146); TOTAL PROTEIN 8.1 g/dL (6.3-8.2)
[2020-06-13 05:55] LABS: ANION GAP 10 (6-22 (CALC)); BILIRUBIN, TOTAL 0.7 mg/dL (0.0-1.4); POTASSIUM 4.9 mmol/l (3.5-5.1); SGOT/AST 43 u/l (19-48)
[2020-06-13] MEDS ORDERED: CIPROFLOXACN500 MG PO (06:53)
[2020-06-13 07:29] VITALS: BP 101/74
== END 2020-06-13 07:38 ==
LOC: ED 03:33 → ED-I 06:30 → ED 07:38
PROVIDERS: Emergency Medicine
PROC: 0T9B70Z Drainage of Bladder with Drainage Device, Via Natural or Artificial Opening (ICD-10-PCS; principal; 2020-06-13)
DX: N39.0 Urinary tract infection, site not specified (principal); F03.90 Unspecified dementia, unspecified severity, without behavioral disturbance, psychotic disturbance, mood disturbance, and anxiety; I48.91 Unspecified atrial fibrillation; I25.10 Atherosclerotic heart disease of native coronary artery without angina pectoris; I11.0 Hypertensive heart disease with heart failure; I50.9 Heart failure, unspecified; F41.9 Anxiety disorder, unspecified; F32.9 Major depressive disorder, single episode, unspecified; B96.20 Unspecified Escherichia coli [E. coli] as the cause of diseases classified elsewhere; R31.9 Hematuria, unspecified; Z86.73 Personal history of transient ischemic attack (TIA), and cerebral infarction without residual deficits; Z20.828 Contact with and (suspected) exposure to other viral communicable diseases

== ENCOUNTER 2021-06-27 22:14 | Emergency (ER) | payer MEDICARE, BC, OTHER ==
[~2021-06-27] VITALS: Ht 167.6 cm; Wt 73.0 kg
[~2021-06-27 22:14] MED LIST changes: +DULCOLAX10 MG RE; +FINASTERIDE5 MG PO
[2021-06-27 23:43] LABS: URINE BILIRUBIN - DIPSTICK NEGATIVE (NEGATIVE); URINE BLOOD DIPSTICK LARGE (NEGATIVE); URINE COLOR YELLOW; URINE GLUCOSE - DIPSTICK NEGATIVE (NEGATIVE); URINE PROTEIN - DIPSTICK 30 mg/dL (NEG-TRACE); URINE SPECIFIC GRAVITY 1.015; URINE UROBILINOGEN - DIPSTICK 0.2 E.U./dL (0.2)
[2021-06-27 23:44] LABS: URINE KETONE NEGATIVE (NEGATIVE); URINE LEUK ESTERASE MODERATE (NEGATIVE); URINE NITRITE - DIPSTICK POSITIVE (Negative)
[2021-06-27 23:49] LABS: URINE BACTERIA MANY hpf; URINE EPITHELIAL CELLS MODERATE EPI/hpf (0-FEW); URINE RBC 25-50 RBC/hpf (0-5); URINE WBC >100 WBC/hpf (0-5)
[2021-06-27] MEDS ORDERED: BACTRIM DS1 TAB PO (23:52)
[2021-06-28 00:26] VITALS: BP 101/59
== END 2021-06-28 01:07 ==
LOC: ED 22:14
PROC: 0T9B70Z Drainage of Bladder with Drainage Device, Via Natural or Artificial Opening (ICD-10-PCS; principal; 2021-06-27)
DX: Z46.6 Encounter for fitting and adjustment of urinary device (principal); N39.0 Urinary tract infection, site not specified; B96.20 Unspecified Escherichia coli [E. coli] as the cause of diseases classified elsewhere; I11.0 Hypertensive heart disease with heart failure; I50.9 Heart failure, unspecified; F03.90 Unspecified dementia, unspecified severity, without behavioral disturbance, psychotic disturbance, mood disturbance, and anxiety; I48.91 Unspecified atrial fibrillation; I25.10 Atherosclerotic heart disease of native coronary artery without angina pectoris; F41.9 Anxiety disorder, unspecified; F32.A Depression, unspecified; Z86.73 Personal history of transient ischemic attack (TIA), and cerebral infarction without residual deficits

== ENCOUNTER 2021-10-27 07:08 | Day surgery (SDC) | payer MEDICARE, BC, OTHER ==
[~2021-10-27] VITALS: Ht 170.2 cm; Wt 67.6 kg
[~2021-10-27 07:08] MED LIST changes: +BACTRIM DS1 TAB PO; +CEFEPIME2 G2 IV; +CEFEPIME2 GM IM; +MV-ONE PO; +SENNA-TABS8.6 MG PO
[2021-10-27] MEDS ORDERED: PERCOCET 5/325M1 TAB PO (10:49)
[2021-10-27 10:57] VITALS: BP 115/60
== END 2021-10-27 11:35 ==
LOC: ORM 07:08
PROVIDERS: ATTEND Urology
PROC: 0T9B00Z Drainage of Bladder with Drainage Device, Open Approach (ICD-10-PCS; principal; 2021-10-27)
DX: N31.9 Neuromuscular dysfunction of bladder, unspecified (principal); R33.8 Other retention of urine; T83.511A Infection and inflammatory reaction due to indwelling urethral catheter, initial encounter; N36.8 Other specified disorders of urethra; N40.1 Benign prostatic hyperplasia with lower urinary tract symptoms; N13.8 Other obstructive and reflux uropathy; I11.0 Hypertensive heart disease with heart failure; I50.9 Heart failure, unspecified; I48.91 Unspecified atrial fibrillation; I25.10 Atherosclerotic heart disease of native coronary artery without angina pectoris; E03.9 Hypothyroidism, unspecified; F03.90 Unspecified dementia, unspecified severity, without behavioral disturbance, psychotic disturbance, mood disturbance, and anxiety; Y84.6 Urinary catheterization as the cause of abnormal reaction of the patient, or of later complication, without mention of misadventure at the time of the procedure; Z86.73 Personal history of transient ischemic attack (TIA), and cerebral infarction without residual deficits; Z87.440 Personal history of urinary (tract) infections
CPT/HCPCS: J0131; J1956

== ENCOUNTER 2022-03-06 23:55 | Emergency (ER) | payer MEDICARE, BC, OTHER ==
[~2022-03-06] VITALS: Ht 170.2 cm; Wt 75.0 kg
[~2022-03-06 23:55] MED LIST changes: +PERCOCET 5/325M1 TAB PO
[2022-03-07] VITALS (13 sets, daily range): BP systolic 69–113; BP diastolic 36–74
[2022-03-07 00:52] LABS: URINE BLOOD DIPSTICK LARGE (NEGATIVE); URINE COLOR BROWN; URINE KETONE TRACE mg/dL (NEGATIVE); URINE PH 8.5 (4.5-8.0); URINE PROTEIN - DIPSTICK >=300 mg/dL (NEG-TRACE); URINE SPECIFIC GRAVITY 1.015
[2022-03-07 00:56] LABS: IMMATURE GRANULOCYTES 3.7 % (0.0-5.0); MEAN CELL VOLUME 100.9 fL CALC (80.0-100.0); MEAN CORPUSCULAR HGB 33.7 pG CALC (26.0-32.0); MEAN CORPUSCULAR HGB CONC 33.4 g/dL CAL (32.0-36.0); NEUT# 5.15 thou/uL (1.82-7.42); RED BLOOD COUNT 3.35 mill/uL (4.70-6.10)
[2022-03-07 00:57] LABS: HEMATOCRIT 33.8 % (39.0-50.0); HEMOGLOBIN 11.3 g/dl (14.0-18.0)
[2022-03-07 00:58] LABS: URINE BILIRUBIN - DIPSTICK MODERATE (NEGATIVE); URINE LEUK ESTERASE MODERATE (NEGATIVE); URINE NITRITE - DIPSTICK POSITIVE (Negative)
[2022-03-07 01:00] LABS: URINE GLUCOSE - DIPSTICK NEGATIVE (NEGATIVE); URINE RBC >100 RBC/hpf (0-5)
[2022-03-07 01:01] LABS: URINE BACTERIA MANY hpf; URINE EPITHELIAL CELLS RARE EPI/hpf (0-FEW); URINE WBC 50-100 WBC/hpf (0-5)
[2022-03-07 01:15] LABS: ALKALINE PHOSPHATASE 53 u/l (38-126); BILIRUBIN, TOTAL 0.6 mg/dL (0.0-1.4); BUN 15 mg/dL (8-23); BUN/CREATININE RATIO 18 (12-20 (CALC)); CARBON DIOXIDE 26 mmol/l (22-30); CHLORIDE 111 mmol/l (95-108); CREATININE 0.9 mg/dL (0.7-1.3); GFR FOR AFR.AMER. > 60 ML/MIN (>=60 (CALC)); GFR OTHER RACES > 60 ML/MIN (>=60 (CALC)); SGOT/AST 15 u/l (19-48); SODIUM 140 mmol/l (137-146)
[2022-03-07 01:16] LABS: ALBUMIN 2.7 g/dL (3.2-5.0); ANION GAP 7 (6-22 (CALC)); POTASSIUM 3.9 mmol/l (3.5-5.1); TOTAL PROTEIN 5.4 g/dL (6.3-8.2)
[2022-03-07] MEDS ORDERED: BACTRIM DS1 TAB PO (01:39)
[2022-03-07 01:46] LABS: TSH, 3RD GENERATION 3.31 uIU/mL (0.47 - 4.68)
== END 2022-03-07 02:52 | disposition home or self-care (01) ==
LOC: ED 23:55
PROVIDERS: Family Medicine
DX: N39.0 Urinary tract infection, site not specified (principal); B96.5 Pseudomonas (aeruginosa) (mallei) (pseudomallei) as the cause of diseases classified elsewhere; R31.0 Gross hematuria; I11.0 Hypertensive heart disease with heart failure; I50.9 Heart failure, unspecified; I48.91 Unspecified atrial fibrillation; I25.10 Atherosclerotic heart disease of native coronary artery without angina pectoris; F41.9 Anxiety disorder, unspecified; F32.A Depression, unspecified; Z93.59 Other cystostomy status; Z86.73 Personal history of transient ischemic attack (TIA), and cerebral infarction without residual deficits; Z20.822 Contact with and (suspected) exposure to COVID-19